=== PATIENT | female | born 1980 | race Two or more races ===

== ENCOUNTER 2021-02-14 20:07 | Emergency (ER) | payer SELFPAY ==
[2021-02-14] MEDS ORDERED: methylPREDNISolone Sodium Succinate 125 MG/2 ML SDV IVPUSH ONE ×2 (20:10→20:12)
[2021-02-14] MEDS ORDERED: EPINEPHrine 1 MG/1 ML Amp IM ONE ×2 (20:11→20:15)
[2021-02-14] MEDS ORDERED: EPINEPHrine 1 MG/ML SDV ONE ×5 (20:11→20:44)
[2021-02-14] MEDS ORDERED: diphenhydrAMINE 50 MG/ML SDV IVPUSH ONE (20:12)
[2021-02-14] MEDS ORDERED: Famotidine 20 MG/2 ML SDV IVPUSH ONE ×2 (20:12)
[2021-02-14] MEDS ORDERED: Lactated Ringers 1,000 ML IV ONE (20:15)
[2021-02-14] MEDS ORDERED: Lactated Ringers 1,000 ML IV SCH (20:15)
[2021-02-14] MEDS ORDERED: EPINEPHrine 1 MG/ML SDV IM ONE ×4 (20:21→20:44)
[2021-02-14] MEDS ORDERED: Albuterol 0.083% 2.5 MG/3 ML Neb Soln ONE (20:36)
[2021-02-14] MEDS ORDERED: Albuterol 0.083% 2.5 MG/3 ML Neb Soln NEB ONE (20:36)
[2021-02-14] MEDS ORDERED: Racepinephrine 2.25% 0.5 ML Neb Soln ONE (20:40)
[2021-02-14] MEDS ORDERED: Racepinephrine 2.25% 0.5 ML Neb Soln NEB ONE (20:40)
[2021-02-14] MEDS ORDERED: Lidocaine 1% with EPINEPHrine 1:100,000 20 ML MDV INJECT ONE (20:45)
[2021-02-14] MEDS ORDERED: Ondansetron 4 MG/2 ML SDV IVPUSH ONE (20:45)
[2021-02-14] MEDS ORDERED: Lidocaine 1% with EPINEPHrine 1:100,000 20 ML MDV ONE (20:45)
[2021-02-14] MEDS ORDERED: Ondansetron 4 MG/2 ML SDV ONE (20:53)
[2021-02-14] MEDS ORDERED: Propofol 200 MG/20 ML SDV ONE (20:56)
[2021-02-14] MEDS ORDERED: Midazolam 1 MG/ML 2 ML SDV ONE (20:57)
[2021-02-14] MEDS ORDERED: Midazolam 5 MG/ML SDV IVPUSH ONE (20:57)
[2021-02-14] MEDS ORDERED: Calcium Chloride 10% 1 GM/10 ML Syringe IVPUSH ONE (21:04)
[2021-02-14] MEDS ORDERED: Succinylcholine 200 MG/10 ML MDV IV ONE (21:07)
[2021-02-14] MEDS ORDERED: Magnesium Sulfate (4.06 MEQ/ML) 5 GM/10 ML SDV IV ONE (21:07)
[2021-02-14] MEDS ORDERED: Magnesium Sulfate (4 meq/ML) 10 GM/20 ML SDV IV ONE (21:07)
[2021-02-14] MEDS ORDERED: fentaNYL/Normal Saline 250 ML ONE (21:08)
--- NOTE | 2021-02-14 21:32 | PCM.PRNOTE ---
- Free Text/Narrative Note: Anes Note I was called to ER to perform emergency intubation for airway edema secondary to shrimp allergy. Resp are easy, but complains of difficult swallowing. An awake look video endoscopy showed no edema around vocal cords. Induced with 100 mg propofol and 1 m versed. 70 mg anectine administered. Video intubation with glidescope was easy and rpaid. No desaturation. Tube secured a t 20 cm at teeth. BBS checked and equal. 50 mg rocuronium was then administered. Bhupinder well. Time with patient Paul Connors CRNA
[2021-02-14 21:36] LABS: BLOOD UREA NITROGEN,BUN 9 mg/dL (7.0-18.0); CARBON DIOXIDE,CO2 27.9 mmol/L (21.0-32.0); CHLORIDE,CL 103 mmol/L (98-107); GLUCOSE RANDOM 189 mg/dL (74-106); POTASSIUM,K 3.7 mmol/L (3.5-5.1); SODIUM,NA 140 mmol/L (136-145)
[2021-02-14] MEDS ORDERED: fentaNYL 100 MCG/2 ML SDV ONE (21:47)
[2021-02-14] MEDS ORDERED: fentaNYL 50 MCG/ML SDV IVPUSH ONE (21:47)
--- NOTE | 2021-02-14 21:55 | CR ---
INDICATION: Tube placement. TECHNIQUE: One view. IMPRESSION: Endotracheal tube roughly 4 cm above the eric. Long enteric tube loops in the stomach. Nipple shadow left lung base. Pulmonary vascularity and cardiomediastinal silhouette are normal. Dictated by Misha Mancia MD @ 02/14/2021 9:54:02 PM (Electronically Signed)
--- NOTE | 2021-02-14 21:59 | EDM.PDOC ---
ED HPI GENERAL MEDICAL PROBLEM - General Chief Complaint: Allergic Reaction Stated Complaint: ALLERGIC REACTION Time Seen by Provider: 02/14/21 21:24 - History of Present Illness INITIAL COMMENTS - FREE TEXT/NARRATIVE: CHIEF COMPLAINT(S): Allergic reaction HISTORY OF PRESENT ILLNESS: This is a 40-year-old woman without any significant past medical history who presents to the emergency department as a medical resuscitation via walk-in triage with a chief complaint of allergic reaction. Per the patient she was at dinner and had some shrimp. She states that she started to experience itching of her skin and she felt like her throat was swelling. She feels like her voice is changed. She denies any shortness of breath. She denies any vomiting, abdominal pain, shortness of breath. She denies any wheezing. She denies any history of asthma or COPD. She denies any other symptoms. She states that she has never had an allergic reaction before so she does not know. REVIEW OF SYSTEMS: Constitutional: Denies fever, chills. Eyes: Denies eye pain Ears, Nose, Mouth, & Throat: Positive for throat swelling. Denies earache Cardiovascular: Denies chest pain Respiratory: Denies shortness of breath Gastrointestinal: Denies Nausea, vomiting, diarrhea, hematochezia. Genitourinary: Denies hematuria Skin: Positive for rash and itchiness. Neurological: Denies blurred vision, numbness, tingling, weakness Psychiatric: Denies depression PAST MEDICAL HISTORY: As per history of present illness and as reviewed below otherwise noncontributory. SURGICAL HISTORY: As per history of present illness and as reviewed below otherw ise noncontributory. SOCIAL HISTORY: As per history of present illness and as reviewed below otherwise noncontributory. FAMILY HISTORY: As per history of present illness and as reviewed below otherw ise noncontributory. EXAMINATION OF ORGAN SYSTEMS/BODY AREAS: VITALS:. Heart rate 102, respiratory rate 19 with an oxygen saturation 9 9% on room air. Temperature 36.6 GENERAL: This is a young woman who does not appear to be in acute distress. HEAD: Normocephalic, atraumatic. EYES: EOMs intact. PERRL. ENT. External ears WNL. Nares patent. Patient has muffled voice. Uvula is swollen, posterior pharynx is swollen and tongue is moderately swollen. No drooling no obvious trismus. No obvious stridor.. NECK: Supple, no masses. Trachea is midline. LUNGS: No tachypnea or intercostal retractions. Clear to auscultation bilaterally, no wheezing, no rales, no stridor, no rhonchi. CARDIOVASCULAR: Regular rate and rhythm with S1-S2. No murmur, rubs or gallops. No edema. No JVD. ABDOMEN: Soft, non-distended, non-tender. Bowel sounds present in all 4 quadrants. No rebound tenderness, guarding, or peritoneal signs. MUSCULOSKELETAL: No deformity. Patient is moving all 4 limbs spontaneously. NEUROLOGICAL: Alert and oriented x 3. No focal neurological deficits noted. SKIN: The patient has an urticarial rash located throughout the upper part of her body and what appears to be herpes zoster/shingles on her left back. The patient's face is swollen and her eyelids are swollen. MEDICAL DECISION MAKING AND COURSE IN THE ED WITH INTERPRETATION/REVIEW OF DIAGNOSTIC STUDIES: This is a 40-year-old woman without any significant past medical history who presents to the emergency department as a medical resuscitation via walk-in triage with chief complaint of allergic reaction. Immediately upon entering the resuscitation room the patient was disrobed, placed on continuous cardiac monitoring, and IV access was established by nursing. The patient is able to speak however she does have muffled voice and her tongue and uvula and posterior pharynx are significantly edematous and swollen. There is no obvious drooling and the patient is sitting up for comfort. The patient does have breath sounds bilaterally without any wheezing and did have palpable pulses in all 4 extremities. At this time I did place the patient on cardiac monitoring and pulse oximetry and small order cutter did reveal sinus tachycardia and pulse oximetry with good waveform was 99% on room air. Given the concern for airway compromise I did provide the patient with 50 mg of IV Benadryl, 125 mg of Solu-Medrol, 40 mg of IV famotidine, 4 mg of IV Zofran, and 0.3 of epinephrine intramuscular. We did provide the patient with 1 L of lactated Ringer's bolus. We will reassess for improvement. After approximately 5 minutes the patient symptoms did not significantly improve. Therefore we will provide the patient with 0.5 mg of IM epinephrine every 5 minutes until things improve. She did have some spitting up/vomiting so an additional 4mg of zofran was provided. I did call general surgery and anesthesia to be at bedside as the patient needs to be intubated for airway protection given angioedema. I did ugo the patient's cricothyroid membrane just in case the patient needs an emergent cricothyrotomy. At this time I did make a premixed bag of epinephrine drip and started the drip at 1 mcg/min. We will provide the patient with albuterol 5 mg and racemic epinephrine to help with the airway edema. General surgery and anesthesia were at bedside. After multiple administrations of IM epinephrine and an epinephrine drip with racemic epi nebulization and albuterol nebulization the uvula, tongue, and posterior pharynx were not improved. At this time given the possibility of progression and no improvement we elected to intubate the patient. This was discussed with patient and at bedside and they did provide verbal consent. As we were preparing to intubate the patient the patient did have an episode of bradycardia in the 40s. We did provide the patient with a calcium chloride and magnesium 2 g given the possibility of prolonged QT. We stopped the epinephrine drip. After infusion of calcium and magnesium the patient's heart rate returned to 120. There was sinus tachycardia on the monitor. Other than epinephrine administration she has no reason for hyperkalemia. Please refer to anesthesia intubation note for intubation. The patient was intubated without any complications. At this time I did start the patient on a fentanyl drip for sedation and place the patient on the ventilator. Patient is placed on room air. We did obtain a post intubation EKG and placed an OG and Disla catheter. We will send basic labs including CBC, BMP and COVID-19. I did discuss with patient's that we would need to transfer patient given that she is intubated. He was amenable to this plan. Laboratory: CBC reveals a leukocytosis of 13.58 and thrombocytosis with a platelet count of 427 likely secondary to demargination secondary to stress response. BMP is unremarkable. Covid is negative. I contacted [facility] in [place] and there were no available ICU beds for transfer. I then contacted [facility] and [facility] in [place] and they both did not have any available ICU beds. Therefore I spoke with Dr. Arechiga at [facility] and he accepted the patient for admission and transfer. The patient will be transferred via ALS ambulance as she currently does not meet any flight criteria. RN notified me that the patient's sedation was not adequate. Therefore we added propofol. Patient is currently on 4 mcg of fentanyl per kilogram per hour. We did provide patient with a propofol bolus. DISPOSITION: The patient was transferred to [facility] in stable yet serious condition CONDITION: Serious PROCEDURES: Cardiac monitoring interpretation, pulse oximetry interpretation FINAL IMPRESSION(S)/DIAGNOSES: 1. Acute anaphylaxis secondary to shrimp 2. Acute angioedema secondary to anaphylaxis 3. Intubated secondary to airway protection Critical Care Procedure Note Authorized and performed by: Srinivas Avelar M.D. Critical Care Time: 104 minutes Due to a high probability of clinically significant, life threatening deterioration, the patient required my highest level of preparedness to intervene emergently and I personally spent this critical care time directly and personally managing the patient. This critical care time included obtaining a history, examining the patient, pulse oximetry; ordering and review of studies; arranging urgent treatment with development of a management plan; evaluation of a patients reponse to treatment; frequent assessment; and discussions with other providers. This critical care time was performed to assess and manage the high probability of imminent, life threatening deterioration that could result in multiorgan failure. It was exclusive of separate billable procedures and treating other patients. Please see MDM section and rest of the note for further information on patient assessment and treatment. Please see MDM section and rest of the note for further information on patient assessment and treatment. - Related Data Allergies Allergy/AdvReac Type Severity Reaction Status Date / Time shrimp Allergy Anaphylactic Verified 02/14/21 20:20 Shock Home Meds: Home Meds . [No Known Home Meds] 02/15/21 [History] Past Medical History - Past Health History Medical/Surgical History: Denies Medical/Surgical History Social & Family History - Tobacco Use Tobacco Use Status *Q: Never Tobacco User Second Hand Smoke Exposure: No - Recreational Drug Use Recreational Drug Use: No ED ROS GENERAL - Review of Systems Review Of Systems: See Below ED EXAM, GENERAL - Physical Exam Exam: See Below Course - Vital Signs Last Recorded V/S: Last Vital Signs Temp 36.6 C 02/14/21 20:17 Pulse 65 02/15/21 02:05 Resp 16 02/15/21 02:05 BP 130/69 02/15/21 02:05 Pulse Ox 100 02/15/21 02:05 - Orders/Labs/Meds Orders: Active Orders 24 hr Category Date Time Status RASS Sedation Scale [RC] ASDIRECTED Care 02/14/21 22:23 Active Lactated Ringers [Ringers, Lactated] 1,000 ml Med 02/14/21 20:15 Active IV ASDIRECTED propofoL [Diprivan 100 ML] 100 ml Med 02/14/21 22:30 Active IV TITRATE Desired Level of Sedation (RASS) [AST] Click to Edit Oth 02/14/21 22:23 Ordered Medication Orders Lactated Ringer's (Ringers, Lactated) 1,000 mls @ 999 mls/hr IV ASDIRECTED PEARL Propofol (Diprivan 100 Ml) 100 mls @ 2.041 mls/hr IV TITRATE PEARL; Protocol Labs: Laboratory Tests 02/14/21 02/14/21 02/14/21 Range/Units 20:15 20:15 21:35 WBC 13.58 H (4.0-11.0) K/uL RBC 4.50 (4.30-5.90) M/uL Hgb 13.5 (12.0-16.0) g/dL Hct 40.0 (36.0-46.0) % MCV 88.9 (80.0-98.0) fL MCH 30.0 (27.0-32.0) pg MCHC 33.8 (31.0-37.0) g/dL RDW Std Deviation 44.5 (28.0-62.0) fl RDW Coeff of Paul 14 (11.0-15.0) % Plt Count 427 H (150-400) K/uL MPV 8.70 (7.40-12.00) fL Neut % (Auto) 57.4 (48.0-80.0) % Lymph % (Auto) 35.1 (16.0-40.0) % [place] % (Auto) 5.9 (0.0-15.0) % Eos % (Auto) 1.4 (0.0-7.0) % Baso % (Auto) 0.2 (0.0-1.5) % Neut # (Auto) 7.8 H (1.4-5.7) K/uL Lymph # (Auto) 4.8 H (0.6-2.4) K/uL [place] # (Auto) 0.8 (0.0-0.8) K/uL Eos # (Auto) 0.2 (0.0-0.7) K/uL Baso # (Auto) 0.0 (0.0-0.1) K/uL Nucleated RBC % 0.0 /100WBC Nucleated RBCs # 0 K/uL Sodium 140 (136-145) mmol/L Potassium 3.7 (3.5-5.1) mmol/L Chloride 103 (98-107) mmol/L Carbon Dioxide 27.9 (21.0-32.0) mmol/L BUN 9 (7.0-18.0) mg/dL Creatinine 0.7 (0.6-1.0) mg/dL Est Cr Clr Drug Dosing TNP Estimated GFR (MDRD) > 60.0 ml/min Glucose 189 H (74-106) mg/dL Calcium 7.5 L (8.5-10.1) mg/dL SARS-CoV-2 RNA (RYDER) NEGATIVE (NEGATIVE) Meds: Medications Generic Name Dose Route Start Last Admin Trade Name Freq PRN Reason Stop Dose Admin Lactated Ringer's 1,000 mls @ 999 mls/hr 02/14/21 20:15 Ringers, Lactated IV ASDIRECTED PEARL Propofol 100 mls @ 2.041 mls/hr 02/14/21 22:30 Diprivan 100 Ml IV TITRATE PEARL Protocol 5 MCG/KG/MIN Discontinued Medications Generic Name Dose Route Start Last Admin Trade Name Freq PRN Reason Stop Dose Admin Albuterol Confirm 02/14/21 20:36 Albuterol 0.083% 2.5 Mg/3 Ml Neb Soln Administered 02/14/21 20:37 Dose 10 mg .ROUTE .STK-MED ONE Diphenhydramine HCl 50 mg 02/14/21 20:12 Diphenhydramine 50 Mg/Ml Sdv IVPUSH 02/14/21 20:13 ONETIME ONE Epinephrine HCl Confirm 02/14/21 20:11 Epinephrine 1 Mg/Ml Sdv Administered 02/14/21 20:12 Dose 1 mg .ROUTE .STK-MED ONE Epinephrine HCl 1 mg 02/14/21 20:15 02/14/21 20:16 Epinephrine 1 Mg/1 Ml Amp IM 02/14/21 20:16 1 mg ONETIME ONE Administration Epinephrine HCl Confirm 02/14/21 20:21 Epinephrine 1 Mg/Ml Sdv Administered 02/14/21 20:22 Dose 1 mg .ROUTE .STK-MED ONE Epinephrine HCl Confirm 02/14/21 20:25 Epinephrine 1 Mg/Ml Sdv Administered 02/14/21 20:26 Dose 1 mg .ROUTE .STK-MED ONE Epinephrine HCl Confirm 02/14/21 20:37 Epinephrine 1 Mg/Ml Sdv Administered 02/14/21 20:38 Dose 1 mg .ROUTE .STK-MED ONE Epinephrine HCl Confirm 02/14/21 20:44 Epinephrine 1 Mg/Ml Sdv Administered 02/14/21 20:45 Dose 2 mg .ROUTE .STK-MED ONE Famotidine 40 mg 02/14/21 20:12 Famotidine 20 Mg/2 Ml Sdv IVPUSH 02/14/21 20:13 ONETIME ONE Fentanyl Confirm 02/14/21 21:47 Fentanyl 100 Mcg/2 Ml Sdv Administered 02/14/21 21:48 Dose 100 mcg .ROUTE .STK-MED ONE Fentanyl Citrate Confirm 02/14/21 21:08 Fentanyl 2500 Mcg In Ns 250 Ml (10 Mcg/Ml) Administered 02/14/21 21:09 Dose 250 mls @ as directed .ROUTE .STK-MED ONE Propofol Confirm 02/14/21 22:35 Diprivan 100 Ml Administered 02/14/21 22:36 Dose 100 mls @ as directed .ROUTE .STK-MED ONE Propofol Confirm 02/15/21 01:45 Diprivan 100 Ml Administered 02/15/21 01:46 Dose 100 mls @ as directed .ROUTE .STK-MED ONE Propofol Confirm 02/15/21 01:50 Diprivan 100 Ml Administered 02/15/21 01:51 Dose 100 mls @ as directed .ROUTE .STK-MED ONE Lidocaine/Epinephrine Confirm 02/14/21 20:45 Lidocaine 1% With Epinephrine 1:100,000 20 Ml Mdv Administered 02/14/21 20:46 Dose 20 ml .ROUTE .STK-MED ONE Methylprednisolone Sodium Succinate 125 mg 02/14/21 20:12 Methylprednisolone Sodium Succinate 125 Mg/2 Ml Sdv IVPUSH 02/14/21 20:13 ONETIME ONE Midazolam HCl Confirm 02/14/21 20:57 Midazolam 1 Mg/Ml 2 Ml Sdv Administered 02/14/21 20:58 Dose 2 mg .ROUTE .STK-MED ONE Ondansetron HCl Confirm 02/14/21 20:53 Ondansetron 4 Mg/2 Ml Sdv Administered 02/14/21 20:54 Dose 4 mg .ROUTE .STK-MED ONE Propofol Confirm 02/14/21 20:56 Propofol 200 Mg/20 Ml Sdv Administered 02/14/21 20:57 Dose 200 mg .ROUTE .STK-MED ONE Propofol 70 mg 02/14/21 22:22 Propofol 200 Mg/20 Ml Sdv IVPUSH 02/14/21 22:23 ONETIME ONE Racepinephrine Confirm 02/14/21 20:40 Racepinephrine 2.25% 0.5 Ml Neb Soln Administered 02/14/21 20:41 Dose 0.5 ml .ROUTE .STK-MED ONE Departure - Departure Time of Disposition: 02:56 Disposition: DC/Tfer to Acute Hospital 02 Condition: Serious Clinical Impression: Anaphylaxis, Angioedema - Discharge Information Referrals: PCP,None [Primary Care Provider] - Forms: ED Department Discharge Sepsis Event Note (ED) - Focused Exam Vital Signs: Vital Signs Temp Pulse Resp BP Pulse Ox 02/15/21 02:05 65 16 130/69 100 02/14/21 22:54 91 16 132/70 97 02/14/21 22:19 102 H 16 142/69 H 99 02/14/21 22:08 96 16 136/73 98 02/14/21 20:17 36.6 C 102 H 19 149/92 H 99 - My Orders Last 24 Hours: My Active Orders 02/14/21 20:15 Lactated Ringers [Ringers, Lactated] 1,000 ml IV ASDIRECTED 02/14/21 22:23 RASS Sedation Scale [RC] ASDIRECTED Desired Level of Sedation (RASS) [AST] Click to Edit 02/14/21 22:30 propofoL [Diprivan 100 ML] 100 ml IV TITRATE - Assessment/Plan Last 24 Hours: My Active Orders 02/14/21 20:15 Lactated Ringers [Ringers, Lactated] 1,000 ml IV ASDIRECTED 02/14/21 22:23 RASS Sedation Scale [RC] ASDIRECTED Desired Level of Sedation (RASS) [AST] Click to Edit 02/14/21 22:30 propofoL [Diprivan 100 ML] 100 ml IV TITRATE
[2021-02-14] MEDS ORDERED: Propofol 200 MG/20 ML SDV IVPUSH ONE (22:22)
--- NOTE | 2021-02-14 22:26 | PCM.EKG ---
#1 Interpretation EKG Date: 02/14/21 Time: 21:17 Rhythm: NSR Rate (Beats/Min): 113 Cascade: Normal P-Wave: Present QRS: Normal ST-T: Normal QT: Normal Comparison: NA - No Prior EKG EKG Interpretation Comments: Sinus Tachycardia
[2021-02-14] MEDS ORDERED: propofoL 100 ML IV SCH (22:30)
[2021-02-14] MEDS ORDERED: propofoL 100 ML ONE (22:35)
[2021-02-15] MEDS ORDERED: propofoL 100 ML ONE ×2 (01:45→01:50)
[2021-02-15] MEDS ORDERED: FENTANYL IV SCH (04:45)
[2021-02-15] MEDS ORDERED: [UNRECOGNIZED DRUG - OTHER] IV SCH (04:45)
[2021-02-15] MEDS ORDERED: Sodium Chloride 0.9% Inhalation Soln 3 ML Neb INH PRN (04:46)
[2021-02-15] MEDS ORDERED: Magnesium Sulfate/Water 50 ML IV ONE (22:00)
[2021-02-16] MEDS: diphenhydrAMINE 50 MG/ML SDV IVPUSH ONE ×2 (04:51→05:01)
--- NOTE | 2021-02-16 07:51 | CONS ---
DATE OF CONSULTATION: 02/14/2021 DATE OF : 1980 PRIMARY CARE PHYSICIAN: None PCP Consult was called emergently for possible emergency airway. HISTORY OF PRESENT ILLNESS: Patient is a 40-year-old lady, seen in emergency room for swollen tongue and difficulty to breathe secondary to allergic reaction. Anesthesiology was called for airway protection, possible intubation and surgery was also called for possible emergency surgical airway. PAST MEDICAL HISTORY: Unknown. PAST SURGICAL HISTORY: Unknown. ALLERGIES: Please refer to nursing for details. MEDICATIONS: Please refer to nursing for details. PHYSICAL EXAMINATION: GENERAL: A very anxious lady, but is able to communicate with a clear voice. Continued to complain of something in the throat. HEENT: Normocephalic, atraumatic. Sclerae anicteric. LUNGS: Clear to auscultation. HEART: Regular rate and rhythm. ABDOMEN: Soft, nondistended. No pulsating tender midline abdominal structure. NECK: There is no stridor and air move bilaterally. ASSESSMENT AND PLAN: Allergic response with swollen tongue and patient feeling uneasy on breathing. Airway protection, intubation and cricothyrotomy emergency Cook kit. ADDENDUM: Intubation was successful. As always, thank you for the kind referral. LOIS / KEV /[id number] MTDKenny
== END 2021-02-15 02:32 ==
LOC: MW.ED 20:07
DX: T78.2XXA Anaphylactic shock, unspecified, initial encounter (principal); T78.3XXA Angioneurotic edema, initial encounter; Z20.822 Contact with and (suspected) exposure to COVID-19
CPT/HCPCS: 31500; 36415; 51702; 71045; 80048; 85025; 87635; 96372; 96374; 99285; J0171; J0330; J2250; J2405; J2704; J3010; J3475; U0002